=== PATIENT | female | born 1950 | race Caucasian/White ===

== ENCOUNTER 2016-12-18 11:10 | Emergency (ER) | payer MEDICARE, OTHER ==
[2016-12-18 12:06] LABS: BASOPHIL 0.2 % (0-2); BILIRUBIN NEGATIVE (NEGATIVE); BLOOD TRACE-INTACT Ery/uL (NEGATIVE); CLARITY CLEAR (CLEAR); COLOR YELLOW (YELLOW); EOSINOPHIL 1.3 % (0-7); GLUCOSE (U) NORMAL (NORMAL); HCT 43.4 % (37.0-47.0); HGB 14.3 g/dl (12.5-16.0); KETONE (U) 2+ (MODERATE) mg/dL (NEGATIVE); LEUKOCYTES NEGATIVE Leu/uL (NEGATIVE); LYMPHOCYTE 16.4 % (15-48); MCH 29.5 pg (25.0-31.0); MCHC 32.9 g/dL (32.0-36.0); MCV 89.7 fL (78.0-100.0); MONOCYTE 7.5 % (0-12); MPV 9.7 fL (6.0-9.5); NEUTROPHIL 74.6 % (41-80); NITRITE NEGATIVE (NEGATIVE); PLT 302 K/uL (150-400); PROTEIN 1+ mg/dL (NEGATIVE); RBC 4.84 M/uL (4.20-5.40); RDW 12.9 % (11.5-14.0); SPECIFIC GRAVITY 1.025 (1.001-1.030); UROBILINOGEN 0.2 mg/dL (0.2-1.0); WBC 8.3 K/uL (4.0-10.5); pH 6.5 (5.0-9.0)
[2016-12-18 12:22] LABS: BACTERIA TRACE; SQUAMOUS EPITHELIAL CELLS RARE; URINARY WBC RARE
[2016-12-18 12:26] LABS: ALBUMIN 4.8 g/dL (3.4-4.8); BILIRUBIN - TOTAL 0.5 mg/dL (0.1-1.0); CREATININE 0.9 mg/dL (0.5-1.0); GLOBULIN (CALCULATION) 2.6 g/dL (2.2-4.2); POTASSIUM 3.8 mmol/L (3.5-5.1); TOTAL PROTEIN 7.4 g/dL (6.4-8.3)
== END 2016-12-18 15:30 | disposition home or self-care (01) ==
LOC: FER 11:10
PROVIDERS: Nurse Practitioner
DX: R11.2 Nausea with vomiting, unspecified (principal); R10.817 Generalized abdominal tenderness; Z88.0 Allergy status to penicillin; Z90.49 Acquired absence of other specified parts of digestive tract; Z90.89 Acquired absence of other organs
CPT/HCPCS: 36415; 80053; 81001; 82150; 83690; 85025; 96372; C9113; J1170; J1980; J2270; J2405

== ENCOUNTER 2021-12-28 14:13 | Emergency (ER) | payer MEDICARE, OTHER ==
[~2021-12-28 14:13] MED LIST: ASPIR 8181 MG PO; DOXYCYCLINE HY100 MG PO; MUPIROCIN 2%22 GM TOP; PRILOSEC20 MG PO; TRAMADOL HCL50 MG PO; WELLBUTRIN SR150 MG PO; ZOFRAN8 MG PO
[2021-12-28 15:46] LABS: BASOPHIL 0.4 % (0-2); EOSINOPHIL 4.9 % (0-7); HGB 14.6 g/dl (12.5-16.0); LYMPHOCYTE 39.8 % (15-48); MCH 29.9 pg (25.0-31.0); MCHC 31.7 g/dL (32.0-36.0); MCV 94.1 fL (78.0-100.0); MONOCYTE 9.6 % (0-12); MPV 10.8 fL (6.0-9.5); NEUTROPHIL 44.9 % (41-80); NRBC 0; PLT 277 K/uL (150-400); RBC 4.89 M/uL (4.20-5.40); RDW 12.4 % (11.5-14.0); WBC 8.2 K/uL (4.0-10.5)
[2021-12-28 16:06] LABS: BILIRUBIN - TOTAL 0.5 mg/dL (0.2-1.0); BUN/CREAT RATIO (CALC) 15.5 RATIO; CREATININE 0.84 mg/dL (0.51-0.95)
== END 2021-12-28 18:42 | disposition home or self-care (01) ==
LOC: FER 14:13
PROVIDERS: Emergency Medicine
DX: R07.89 Other chest pain (principal); M94.0 Chondrocostal junction syndrome [Tietze]; Z88.0 Allergy status to penicillin; Z20.822 Contact with and (suspected) exposure to COVID-19
CPT/HCPCS: 36415; 71045; 71275; 80053; 84484; 85025; 85379; 93005; J1885; Q9967; U0002